=== PATIENT | female | born 1955 | race Caucasian/White ===

== ENCOUNTER → 2022-11-07 | Outpatient (CLI) | payer MEDICARE, OTHER ==
[~2022-11-07] MED LIST: AMLO1TAB24 PO; ATOR40TA75 PO; METH25TAB PO; METO1TAB7 PO
== END ==
LOC: M ONCR 12:39
PROVIDERS: ATTEND General Practice
DX: C34.31 Malignant neoplasm of lower lobe, right bronchus or lung (principal); F17.218 Nicotine dependence, cigarettes, with other nicotine-induced disorders; E03.9 Hypothyroidism, unspecified; E78.5 Hyperlipidemia, unspecified; E11.9 Type 2 diabetes mellitus without complications; Z79.899 Other long term (current) drug therapy; Z71.2 Person consulting for explanation of examination or test findings; Z71.6 Tobacco abuse counseling
CPT/HCPCS: 99406; G0463

== ENCOUNTER → 2022-11-25 | Outpatient (CLI) | payer MEDICARE, OTHER ==
[~2022-11-25] VITALS: Ht 156.2 cm; Wt 49.9 kg
[~2022-11-25] MED LIST changes: +DIAZ5TAB; +LIDOCAINE W/EPINEPHRINE 1% 20ML VIAL As Ordered ONE; +MIDAZOLAM INJ 2MG/2ML VIAL As Ordered ONE; +NS 1,000 ML IV SCH; +ceFAZolin 2 GM/D5W 50 ML IV BAG As Ordered ONE; +ceFAZolin SOD 2 GM in IV 1 EA IV ONE; +fentaNYL 100 MCG/2 ML INJECTION As Ordered ONE
[2022-11-25 07:10] VITALS: TEMP 98.4
[2022-11-25 11:17] VITALS: BP 126/60; O2SAT 97
== END ==
LOC: M IRPRO 06:47
PROVIDERS: ATTEND Internal Medicine Medical Oncology
DX: C34.91 Malignant neoplasm of unspecified part of right bronchus or lung (principal)
CPT/HCPCS: 36561; 99152; 99153; J0690; J2250; J3010

== ENCOUNTER 2022-11-27 08:30 | Outpatient (RCR) | payer MEDICARE, OTHER ==
[~2022-11-27 08:30] MED LIST changes: -ENAL1TAB52 PO; -ONDA8TAB8 PO; -PROC10TA5 PO; -PROHANCE 279.3MG/ML 5ML VIAL As Ordered ONE
[2023-01-05] MEDS ORDERED: ENAL1TAB52 PO (13:07)
[2023-01-05] MEDS ORDERED: ONDA8TAB8 PO (13:26)
[2023-01-05] MEDS ORDERED: PROC10TA5 PO (13:26)
== END 2022-12-18 ==
LOC: M ONCR 08:30
PROVIDERS: ATTEND General Practice
DX: Z51.0 Encounter for antineoplastic radiation therapy (principal); C34.31 Malignant neoplasm of lower lobe, right bronchus or lung
CPT/HCPCS: 70553; 77334; A9576

== ENCOUNTER → 2022-11-27 | Outpatient (CLI) | payer MEDICARE, OTHER ==
[~2022-11-27] MED LIST changes: -DIAZ5TAB; +DIAZ5TAB PO; +ENAL1TAB52 PO; -LIDOCAINE W/EPINEPHRINE 1% 20ML VIAL As Ordered ONE; -MIDAZOLAM INJ 2MG/2ML VIAL As Ordered ONE; -NS 1,000 ML IV SCH; +ONDA8TAB8 PO; +PROC10TA5 PO; +PROHANCE 279.3MG/ML 5ML VIAL As Ordered ONE; -ceFAZolin 2 GM/D5W 50 ML IV BAG As Ordered ONE; -ceFAZolin SOD 2 GM in IV 1 EA IV ONE; -fentaNYL 100 MCG/2 ML INJECTION As Ordered ONE
== END ==
LOC: M RAD 08:55
DX: C34.90 Malignant neoplasm of unspecified part of unspecified bronchus or lung (principal)

== ENCOUNTER → 2022-12-23 | Outpatient (CLI) | payer MEDICARE, OTHER ==
[~2022-12-23] MED LIST changes: +DIAZ5TAB; -DIAZ5TAB PO
== END ==
LOC: M PLARAD 12:36
PROVIDERS: ATTEND Specialist
DX: C34.90 Malignant neoplasm of unspecified part of unspecified bronchus or lung (principal)
CPT/HCPCS: 78815; A9552

== ENCOUNTER 2023-02-11 10:40 | Outpatient (RCR) | payer MEDICARE, OTHER ==
[~2023-02-11 10:40] MED LIST changes: -DIAZ5TAB; +DIAZ5TAB PO; +ENAL1TAB52 PO; +ONDA8TAB8 PO; +PROC10TA5 PO
== END 2023-02-17 ==
LOC: M ONCR 10:40
PROVIDERS: ATTEND General Practice
DX: Z51.0 Encounter for antineoplastic radiation therapy (principal); C34.31 Malignant neoplasm of lower lobe, right bronchus or lung